=== PATIENT | female | born 1945 | race Caucasian/White ===

== ENCOUNTER 2017-12-19 07:59 | Outpatient (CLI) | payer MEDICARE, OTHER ==
[~2017-12-19] VITALS: Ht 160 cm; Wt 66.8 kg
--- NOTE | ~2017-12-19 | OP ---
PATIENT NAME: ROXANA ALDRIDGE MEDICAL RECORD: [id number] :47 LOCATION:D.CAT ADMISSION DATE: SURGEON: GREGG FOSS MD DATE OF OPERATION: 12/19/2017 PROCEDURES: 1. Left heart catheterization. 2. Selective coronary angiography. 3. Left ventriculogram. INDICATION: Chest pain, abnormal nuclear stress test. PROCEDURE IN DETAIL: After informed consent was obtained and after detailed explanation of risks, benefits as well as alternative therapies, the patient elected to proceed with angiogram and heart catheterization. The right femoral area was prepped and draped in normal sterile fashion. The right femoral artery was cannulated via modified Seldinger technique with placement of 5-Lao sheath. All catheters exchanged through this sheath. FINDINGS: Left ventriculogram was performed in the standard 30-degree MCCOY view reveals good cardiac wall motion throughout all segments. Overall ejection fraction estimated at 60%. SELECTIVE CORONARY ANGIOGRAPHY: Left main, left anterior descending, left circumflex, and right coronary artery are all smooth-walled vessels with no angiographic evidence of coronary artery disease. OVERALL IMPRESSION: 1. No angiographic evidence of coronary artery disease. 2. Normal left heart pressures. 3. Normal left ventricular systolic function. Chest pain is noncardiac in etiology. Nuclear stress was false positive. No other cardiac workup treatment is necessary. TRANSINT:[id number] Voice Confirmation ID: [id number] DOCUMENT ID: [id number] GREGG FOSS MD CC: [id number] DICTATION DATE: 12/19/17 1038 [employer]IOR [employer] CONSULTANT: 12/19/17 1127 REG [facility] [address] [place] [address]
--- NOTE | ~2017-12-19 | HEMODYNAMI ---
PATIENT:ROXANA ALDRIDGE MEDICAL RECORD: [id number] : 47 LOCATION:DDIVYA ADMISSION DATE: 12/19/17 Generatedon:12/19/201710:38 Patient name: ROXANA ALDRIDGE Patient #: [id number] SSN: DO B: 1945 Date of study: 12/19/2017 Page: Of Hemodynamic Procedure Report Patient Data Patient Demographics Procedure consent was obtained First Name: ROXANA Gender: Female Last Name: OLY : 1945 [facility] Initial: KEYSHAWN Age: 72 year(s) Patient #: [id number] Race: Unknown Additional ID: [id number] Contact details [address]: [address] [place] [address] State: [place] City: [place] Zip code: [address] Past Medical History Allergies Allergen Reaction Date Comments Reported Statins 12/19/2017 Admission Admission Data Admission Date: 12/19/2017 Admission Time: 7:59 Height (in.): 5.3 BSA: 0.28 (m2) Height (cm.): 13.46 BMI: 3679.29 (kg/m2) Weight (lbs.): 147 Weight (kg.): 66.68 Lab Results Lab Result Date: 12/19/2017 Lab Result Time: 0:00 Biochemistry Name Units Result Min Max BUN mg/dl 25 --(----)-* 7 18 Creatinine mg/dl 1.1 --(--*-)-- 0.6 1.3 CBC Name Units Result Min Max Hemoglobin g/dl 13 -*(----)-- 13.5 17.5 Procedure Procedure Types Cath Procedure Diagnostic Procedure C [facility] w/Coronaries Procedure Description Procedure Date Procedure Date: 12/19/2017 Procedure Start Time: 10:29 Procedure End Time: 10:37 Procedure Staff Name Function Jarret Rich MD Performing Physician Maricruz Whitney RT Monitor Mandi Aparicio RT Scrub Madyson Ayala RN Nurse Procedure Data Cath Procedure Fluoroscopy Diagnostic fluoroscopy Total fluoroscopy Time: 0.7 time: 0.7 min min Diagnostic fluoroscopy Total fluoroscopy dose: 92 dose: 92 mGy mGy Contrast Material Contrast Material Type Amount (ml) Isovue 300 36 Entry Location Entry Primary Successful Side Size Upsize Upsize Entry Closure Succes sful Closure Location (Fr) 1 (Fr) 2 (Fr) Remarks Device Remarks Femoral Right 5 Fr Exoseal artery Estimated blood loss: 5 ml Diagnostic catheters Device Type Used For End Catheter Placement MULTIPACK Pigtail 5 Fr LV Angiography catheter MULTIPACK JL 4.0 5Fr Left Coronary catheter Angiography MULTIPACK 3DRC 5Fr Right Coronary catheter Angiography Procedure Complications No complications Procedure Medications Medication Administration Route Dosage Oxygen NC 2 l/min Lidocaine 2% added to field 20 Heparin Flush Bag added to field 2 bags (1000units/500ml NS) 0.9% NaCl I.V. 100 ml/hr Versed I.V. 1.5 mg Fentanyl I.V. 75 mcg Versed I.V. 1 mg Fentanyl I.V. 50 mcg Versed I.V. 1 mg Fentanyl I.V. 50 mcg Hemodynamics Rest BSA: 0.28 (m2) HGB: 13 (g/dl) O2 Consumption: Estimated: 25.82 (ml/min) O2 Consu mption indexed: Estimated:92.21 (ml/min/m) Heart Rate: 71 (bpm) Snapshots Pre Cath Intra NCS Post Cath Vital Signs Time Heart Resp SPO2 etCO2 NIBP Rhythm Pain Sedation Rate (ipm) (%) (mmHg) (mmHg) Status Level (bpm) 10:05:14 75 15 100 38.1 130/56(83) NSR 0 (11) 10(A) , No pain 10:09:54 72 15 100 38.1 116/61(82) NSR 0 (11) 10(A) , No pain 10:14:31 72 13 93 33 126/61(91) NSR 0 (11) 10(A) , No pain 10:19:11 73 15 100 25.1 126/61(90) NSR 0 (11) 10(A) , No pain 10:23:48 78 18 99 25.1 119/66(85) NSR 0 (11) 10(A) , No pain 10:28:26 78 14 99 40.4 118/57(88) NSR 0 (11) 10(A) , No pain 10:33:03 80 14 99 42.7 110/59(96) NSR 0 (11) 9(A) , No pain 10:37:38 85 13 99 30.4 125/68(90) NSR 0 (11) 10(A) , No pain Medications Time Medication Route Dose Verified Delivered Reason Notes Effe ctiveness by by 10:03:48 Oxygen NC 2 Jarret Buffie used for l/min Hilario Ayala RN procedure 10:03:54 Lidocaine 2% added 20ml Jarret Jarret for local to vial Hilario Rich MD anesthetic field 10:04:01 Heparin Flush added 2 Jarret Jarret used for Bag to bags Hilario Rich MD procedure (1000units/500ml field NS) 10:04:09 0.9% NaCl I.V. 100 Jarret Buffie Per ml/hr Hilario Ayala RN physician 10:28:10 Versed I.V. 1.5 Jarret Buffie for mg Hilario Ayala RN sedation 10:28:16 Fentanyl I.V. 75 Jarret Buffie for mcg Hilario Ayala RN sedation 10:30:44 Versed I.V. 1 mg Jarret Buffie for Hilario Ayala RN sedation 10:30:48 Fentanyl I.V. 50 Jarret Buffie for mcg Hilario Ayala RN sedation 10:33:19 Versed I.V. 1 mg Jarret Buffie for Hilario Ayala RN sedation 10:33:23 Fentanyl I.V. 50 Jarret Buffie for mcg Hilario Ayala RN sedation Procedure Log Time Note 9:41:59 Time tracking: Regular hours 9:42:04 Plan of Care:Hemodynamics will remain stable., Cardiac rhythm will remain stable., Comfort level will be maintained., Respiratory function will remain adequate., Patient/ family verbilizes understanding of procedure., Procedure tolerated without complication., Recovers from procedure without complications.. 9:42:05 Signed procedure consent form obtained from patient. 9:43:31 H&P Date Dictated: 12/12/2017 Within 30 days and on chart., H&P Addendum completed by physician on day of procedure. (MUST COMPLETE FOR ALL OUTPATIENTS). 9:43:38 Patient Height : 5.3 inches 9:43:41 Patient Weight : 147 lbs 9:45:05 Lab Result : BUN 25 mg/dl 9:45:05 Lab Result : Hemoglobin 13 g/dl 9:45:05 Lab Result : Creatinine 1.1 mg/dl 9:48:06 Madyson Ayala RN sent for patient. Start room use. 9:55:00 Patient received from Pre/Post Procedure Room to CCL 1 Alert and oriented. Tansferred to table in Supine position. 9:55:02 Warm blankets applied, and sawyer hugger turned on for patient comfort. 9:55:02 Correct patient and procedure confirmed by team. 9:55:03 ECG and BP/O2 sat monitors applied to patient. 10:03:48 Oxygen 2 l/min NC was administered by Madyson Ayala RN; used for procedure; 10:03:54 Lidocaine 2% 20ml vial added to field was administered by Jarret Rich MD; for local anesthetic; 10:04:01 Heparin Flush Bag (1000units/500ml NS) 2 bags added to field was administered by Jarret Rich MD; used for procedure; 10:04:09 0.9% NaCl 100 ml/hr I.V. was administered by Madyson Ayala RN; Per physician; 10:04:20 Vital chart was started 10:04:23 Rhythm: sinus rhythm 10:04:24 Full Disclosure recording started 10:04:26 Pre-procedure instructions explained to patient. 10:04:26 Pre-op teaching completed and patient verbalized understanding. 10:04:28 Family in patients room. 10:04:29 Patient NPO since Midnight. 10:04:40 Patient allergic to Statins 10:04:42 Is the patient allergic to Iodine/contrast media? No. 10:04:46 Is patient on blood thinner?Yes 10:04:48 ACC The patient was administered the following blood thiners within the last 24 hours: ACCPlavix 10:04:50 Patient diabetic? No. 10:04:54 Previous problem with sedation/anesthesia? No ? 10:04:55 Snore? Yes 10:04:56 Sleep apnea? No 10:04:56 Deviated septum? No 10:04:57 Opens mouth fully? Yes 10:05:04 Sticks out tongue? Yes 10:05:07 Airway obstruction? No ? 10:05:09 Dentures? No ? 10:05:11 Pre procedure: right dorsailis pedis pulse 2+ Normal; easily identifiable; not easily obliterated 10:05:13 Modified Lupillo's test Ulnar < 7 seconds 10:05:14 Patient pain scale 0/10 ?. 10:05:22 IV patent on arrival in left hand with 0.9% NaCl at [facility]. 10:05:25 Right groin area was prepped with chlora-prep and draped in sterile fashion 10:05:26 Alarms reviewed by R. N. 10:05:27 Sharps counted by scrub and verified by R.N. 10:09:39 Use device set Femoral Dx 10:09:40 ACIST Syringe (75679) opened to sterile field. 10:09:41 Bag Decanter (2002S) opened to sterile field. 10:09:41 Medline Cath Pack ([id number]) opened to sterile field. 10:09:42 SHEATH 5FR [place] (NFG193) opened to sterile field. 10:09:43 DIAGNOSTIC WIRE .035 260cm J wire (869444) opened to sterile field. 10:09:44 ACIST Hand Control (47178) opened to sterile field. 10:09:44 ACIST Manifold (00032) opened to sterile field. 10:09:45 DIAGNOSTIC Multipack 5Fr catheter set ([id number]) opened to sterile field. 10:09:46 Tegaderm 4 x 4 (1626W) opened to sterile field. 10:09:46 PERCUTANEOUS ENTRY 19GA needle opened to sterile field. 10:10:05 Zero performed for pressure channel P1 10:10:12 Zero performed for pressure channel P1 10:10:15 Zero performed for pressure channel P1 10:10:23 Baseline sample Acquired. 10:27:41 Final Timeout: patient, procedure, and site verified with staff and physician. All members of the team are in agreement. 10:27:43 Right groin site verified by team. 10:27:46 Physical assessment completed. ASA score P 2 - A patient with mild systemic disease as per Jarret Rich MD. 10:27:49 Sedation plan: IV Moderate Sedation Medication:Versed, Fentanyl 10:28:10 Versed 1.5 mg I.V. was administered by Madyson Ayala RN; for sedation; 10:28:16 Fentanyl 75 mcg I.V. was administered by Madyson Ayala RN; for sedation; 10:29:53 Procedure started. 10:29:57 Local anesthetic to right femoral artery with Lidocaine 2% by Jarret Rich MD.INITIAL ACCESS ONLY 10:30:29 A 5 Fr sheath was inserted into the Right Femoral artery 10:30:44 Versed 1 mg I.V. was administered by Madyson Ayala RN; for sedation; 10::48 Fentanyl 50 mcg I.V. was administered by Madyson Ayala RN; for sedation; 10:31:03 A MULTIPACK Pigtail 5 Fr catheter was advanced over the wire and used for LV Angiography. 10:31:39 LV gram done using MCCOY 10:31:40 LV hemodynamics recorded. 10::43 Injector settings: Ml/sec: 10, Volume: 20, 10::47 EF : 60 % 10::48 Catheter removed. 10:32:04 A MULTIPACK JL 4.0 5Fr catheter was advanced over the wire and used for Left Coronary Angiography. 10:32:44 Catheter removed. 10:33:03 A MULTIPACK 3DRC 5Fr catheter was advanced over the wire and used for Right Coronary Angiography. 10:33:19 Versed 1 mg I.V. was administered by Madyson Ayala RN; for sedation; 10:33:23 Fentanyl 50 mcg I.V. was administered by Madyson Ayala RN; for sedation; 10:33:31 Catheter removed. 10:33:34 EXOSEAL 5Fr (EX500) opened to sterile field. 10:33:53 Sheath removed intact; hemostasis achieved with Exoseal to the Right Femoral artery. 10:33:58 Procedure ended.(Physican Out) 10:34:10 Fluoroscopy time 00.70 minutes. 10:34:15 Fluoroscopy dose: 92 mGy 10:34:15 Flurop Dose total: 92 10:34:18 Contrast amount:Isovue 300 36ml. 10:34:20 Sharps counted by scrub and verified by R.N. 10:34:21 Insertion/operative site no bleeding no hematoma. 10:34:26 Post-op/insertion site Right Femoral artery dressed using a 4 x 4 and Tegaderm. 10:34:29 Post right femoral artery:stable, clean and dry 10:35:30 Post Procedure Pulses reassessed and unchanged 10:35:36 Post-procedure physical assessment completed. ASA score P 2 - A patient with mild systemic disease as per Jarret Rich MD. 10:35:38 Post procedure rhythm: unchanged. 10:35:41 Estimated blood loss: 5 ml 10:35:42 Post procedure instruction explained to patient.Patient verbalizes understanding. 10:35:43 Patient needs reinforcement of post procedure teaching. 10:36:06 Procedure Complication : No complications 10:36:08 See physician's report for complete and final results. 10:36:37 Procedure and supply charges have been captured, reviewed, submitted and are correct. 10:37:05 Vital chart was stopped 10:37:07 Report given to Pre/Post Procedure Room. 10:37:10 Patient transfered to Pre/Post Procedure Room with Stretcher. 10:37:18 Procedure ended. 10:37:18 Full Disclosure recording stopped 10:37:22 End room use (Document Last) Device Usage Item Name Manufacture Quantity Catalog Hospital Part Current Minimal Lot# / Number Charge Number Stock Stock Serial# Code ACIST Acist 1 90379 622991 661921 [id number] 20 Syringe Medical (97453) Systems Inc Bag Decanter Microtek 1 2001S 520941 17728 395871 5 (2001S) Medical Inc. Medline Cath Cardinal 1 [id number] 641574 22349 507736 5 Pack Health ([id number]) SHEATH 5FR Terumo 1 KVL674 716282 166085 491253 40 [place] (OSP892) DIAGNOSTIC [place] 1 367836 339779 928263 199114 30 WIRE .035 260cm J wire (921708) ACIST Hand Acist 1 67706 419654 631210 616999 5 Control Medical (12348) Systems Inc ACIST Acist 1 94988 716241 690767 801526 5 Manifold Medical (62070) Systems Inc DIAGNOSTIC Cardinal 1 FY5229 598154 64776 115863 30 Multipack Health 5Fr catheter set ([id number]) Tegaderm 4 x 3M 1 1626W 671109 059589 332664 5 4 (1626W) PERCUTANEOUS Cook Medical 1 V68629 319650 754906 5 ENTRY 19GA needle MULTIPACK Cardinal 1 521134 5 Pigtail 5 Fr Health catheter MULTIPACK JL Cardinal 1 920303 5 4.0 5Fr Health catheter MULTIPACK Cardinal 1 520745 5 3DRC 5Fr Health catheter EXOSEAL 5Fr Cardinal 1 EX500 102228 290273 591272 10 (EX500) Health Signature Audit [place] Stage Time Signature Unsigned Intra-Procedure 12/19/2017 Maricruz 10:38:46 AM Counts RT(R) Signatures Monitor : Maricruz Signature : Counts RT Date : Time : [address] [address]
[2017-12-19] MEDS ORDERED: FENOFIBRATE160 MG PO (08:21)
[2017-12-19] MEDS ORDERED: TENEX1 MG PO (08:22)
[2017-12-19] MEDS ORDERED: PROZAC40 MG PO (08:22)
[2017-12-19] MEDS ORDERED: OMEPRAZOLE40 MG PO (08:22)
[2017-12-19] MEDS ORDERED: AMITRIPTYLINE H50 MG PO (08:22)
[2017-12-19] MEDS ORDERED: PROBIOTIC250 MG PO (08:23)
[2017-12-19] MEDS ORDERED: MULTIPLE VITAMI1 TA1 PO (08:23)
[2017-12-19] MEDS ORDERED: BIOTIN5 MG PO (08:23)
[2017-12-19 08:45] VITALS: BP 125/70; Ht 160 cm; Wt 66.8 kg
[2017-12-19 08:49] LABS: BASOPHILS 1.1 % (0-2); EOSINOPHILS 1.7 % (0-7); HEMATOCRIT 39.4 % (36.0-48.0); IMMATURE GRANULOCYTES 0.2 % (0-5); LYMPHOCYTES 33.5 % (15-50); MCH 32.2 pg (26.0-34.0); MCV 97.5 fL (80.0-100.0); MEAN PLATELET VOLUME 10.1 fL (7.4-10.4); MONOCYTES 9.7 % (2-11); NEUTROPHILS 53.8 % (40-80); PLATELET COUNT 288 10x3/uL (130-400); RBC 4.04 10x6/uL (4.00-5.40); WBC 4.6 10x3/uL (4.8-10.8)
[2017-12-19 08:54] LABS: ANION GAP 10.1 mmol/L (8-16); CALCIUM 9.2 mg/dL (8.5-10.1); CARBON DIOXIDE 30.7 mmol/L (21.0-32.0); CREATININE - SERUM 1.1 mg/dL (0.6-1.3); POTASSIUM - SERUM 3.8 mmol/L (3.5-5.1)
== END 2017-12-19 12:40 | disposition home or self-care (01) ==
LOC: D.CATH 07:59
PROVIDERS: Internal Medicine Interventional Cardiology
DX: I20.9 Angina pectoris, unspecified (principal); R94.30 Abnormal result of cardiovascular function study, unspecified; Z82.49 Family history of ischemic heart disease and other diseases of the circulatory system; Z01.812 Encounter for preprocedural laboratory examination